=== PATIENT | female | born 1955 | race Caucasian/White ===

== ENCOUNTER → 2018-06-07 | Outpatient (CLI) | payer OTHER ==
[~2018-06-07] MED LIST: ALBU8.5H8 INH; CHOL500050 PO; IBUP200T64 PO; METO50TA82 PO; SCOP1PAT11 TD; [UNRECOGNIZED DRUG - REMARK]; progesterone cream
== END | disposition home or self-care (01) ==
LOC: CFH 12:51
PROVIDERS: ATTEND Family Medicine
DX: N64.4 Mastodynia (principal); Z80.3 Family history of malignant neoplasm of breast
CPT/HCPCS: 76642; 77066; G0279